=== PATIENT | female | born 1955 | race Caucasian/White ===

== ENCOUNTER → 2017-10-03 | Outpatient (CLI) | payer BC, OTHER | LOC: RAD 02:42 | DX: Z12.31 Encounter for screening mammogram for malignant neoplasm of breast (principal) ==

== ENCOUNTER → 2018-10-15 | Outpatient (CLI) | payer OTHER, BC | LOC: RAD 09:21 | DX: Z12.31 Encounter for screening mammogram for malignant neoplasm of breast (principal) ==

== ENCOUNTER → 2019-11-15 | Outpatient (CLI) | payer OTHER, BC | LOC: RAD 11-03 09:19 → BC 11-03 10:42 → RAD 11-03 16:24 | DX: Z12.31 Encounter for screening mammogram for malignant neoplasm of breast (principal) ==

== ENCOUNTER → 2019-11-23 | Outpatient (CLI) | payer OTHER, BC | LOC: BC 08:47 | DX: N63.10 Unspecified lump in the right breast, unspecified quadrant (principal); Z98.82 Breast implant status ==

== ENCOUNTER → 2020-06-27 | Outpatient (CLI) | payer OTHER, BC | LOC: RAD 08:43 | PROVIDERS: ATTEND Pediatrics | DX: R92.8 Other abnormal and inconclusive findings on diagnostic imaging of breast (principal) ==

== ENCOUNTER → 2021-11-27 | Outpatient (CLI) | payer OTHER, BC | LOC: BC 09:44 | DX: Z12.31 Encounter for screening mammogram for malignant neoplasm of breast (principal); Z98.82 Breast implant status ==